=== PATIENT | male | born 1970 | race Caucasian/White ===

== ENCOUNTER 2023-01-21 00:10 | Day surgery (SDC) | payer OTHER, SELFPAY ==
[2023-01-08 11:51] VITALS: BMI 44.9
[2023-01-21 10:18] VITALS: BP 161/71; PULSE 57; RESP 18; TEMP 36.2; O2SAT 98
[2023-01-21] MEDS: LACTATED RINGERS 1,000 ML 150 ML IV CONT (10:28)
--- NOTE | 2023-01-21 10:29 | P.PNAN_ITS ---
Anes - Initial Pre Proc Eval Procedure: Operation Date: 01/21/23 11:30 Proposed Procedures p Screening Colonoscopy - Reji Olson MD Date/Time: 01/21/23 10:29 Surgeon: Reji Olson MD Pre Op Diagnosis: neoplasm screening Patient Data Age: 52 Gender: M Height: 1.78 m Weight: 145.5 kg Last Vital Signs Temp 36.2 C L 01/21/23 10:18 Pulse 57 L 01/21/23 10:18 Resp 18 01/21/23 10:18 BP 161/71 H 01/21/23 10:18 Pulse Ox 98 01/21/23 10:18 O2 Del Method Room Air 01/21/23 10:18 Allergies Allergy/AdvReac Type Severity Reaction Status Date / Time No Known Allergies Allergy Verified 01/21/23 10:17 Home Medications Medication Instructions Recorded Confirmed Type allopurinol 100 mg tablet 100 mg PO DAILY 01/08/23 01/08/23 History canagliflozin 300 mg tablet 300 mg PO DAILY 01/08/23 01/08/23 History (Invokana) glipizide 10 mg tablet 10 mg PO BID 01/08/23 01/08/23 History losartan 50 mg tablet 50 mg PO DAILY 01/08/23 01/08/23 History metformin 1,000 mg tablet 1,000 mg PO DAILY 01/08/23 01/08/23 History pioglitazone 30 mg tablet 30 mg PO DAILY 01/08/23 01/08/23 History pravastatin 20 mg tablet 20 mg PO DAILY 01/08/23 01/08/23 History tadalafil 2.5 mg tablet 2.5 mg PO DAILY PRN Erectile 01/08/23 01/08/23 History Dysfunction Patient hx anesthesia problems: none Family hx anesthesia problems: none Results Review: All pre-operative results and documents have been reviewed as part of the pre- operative evaluation. [facility] Past Medical History Medical History (Updated 01/21/23 @ 10:30 by Freddy Isaac MD) COPD (chronic obstructive pulmonary disease) Diabetes Hyperlipidemia MARCELLUS on CPAP Social History Social History Living arrangements: with family Spiritual care concerns: No Anes - Eval Final PreProcedure Day of Procedure 01/21/23 10:29 Patient weight: morbidly obese Heart: regular rate and rhythm Lungs: clear to auscultation and normal air movement Airway: Mallampati scale class II Neurological: alert and oriented Last oral intake: >/= 8 hours ASA classification: III Emergent: no Anesthetic plan: proceed Anesthesia type and monitoring: general GIVS Results Review: All pre-operative results and documents have been reviewed as part of the pre- operative evaluation. Informed Consent: The patient's anesthetic plan and its attendant risks and benefits were discussed with the patient/family/POA. Questions were solicited and answers provided to the satisfaction of the patient/family/POA.
--- NOTE | 2023-01-21 10:47 | PM.HPGS ---
History of Present Illness History of Present Illness Consent: Risks, benefits, and alternatives have been discussed and questions answered. Patient agrees to proceed with procedure. Chief complaint: neoplasm screening Narrative: Constantine Carranza is a 52 year old male here for first screening colonoscopy Review of Systems Constitutional: Constitutional: Denies headache(s) and Denies weakness Eyes: Eyes: Denies blurry vision ENT: Reports Normal hearing present, Denies headache(s) and Denies neck pain Cardiovascular: Cardiovascular: Denies chest pain and Denies dyspnea Respiratory: Respiratory: Denies dyspnea Gastrointestinal: Gastrointestinal: Reports no additional gastrointestinal complaints Genitourinary: Genitourinary: Denies dysuria Musculoskeletal: Musculoskeletal: Denies neck pain Integumentary/Breasts: Skin/Breast: Denies dry skin Neurologic: Reports Normal hearing present, Denies headache(s) and Denies weakness Psychiatric: Psychiatric: Denies anxiety Endocrine: Endocrine: Denies change in body appearance Hematologic/Lymphatic: Hematologic/Lymphatic: Denies easy bleeding Allergic/Immunologic: Allergic/Immunologic: Denies urticaria [facility] Past Medical History Medical History (Updated 01/21/23 @ 10:47 by Reji Olson MD) Colon cancer screening COPD (chronic obstructive pulmonary disease) Diabetes Hyperlipidemia MARCELLUS on CPAP Social History Social History Living arrangements: with family Spiritual care concerns: No Meds Home Medications and Allergies Home Medications Medication Instructions Recorded Confirmed Type allopurinol 100 mg tablet 100 mg PO DAILY 01/08/23 01/08/23 History canagliflozin 300 mg tablet 300 mg PO DAILY 01/08/23 01/08/23 History (Invokana) glipizide 10 mg tablet 10 mg PO BID 01/08/23 01/08/23 History losartan 50 mg tablet 50 mg PO DAILY 01/08/23 01/08/23 History metformin 1,000 mg tablet 1,000 mg PO DAILY 01/08/23 01/08/23 History pioglitazone 30 mg tablet 30 mg PO DAILY 01/08/23 01/08/23 History pravastatin 20 mg tablet 20 mg PO DAILY 01/08/23 01/08/23 History tadalafil 2.5 mg tablet 2.5 mg PO DAILY PRN Erectile 01/08/23 01/08/23 History Dysfunction Allergies Allergy/AdvReac Type Severity Reaction Status Date / Time No Known Allergies Allergy Verified 01/21/23 10:17 Vital Signs Vital Signs - 24 hr 01/21/23 10:18 Temperature 97.2 F L Pulse Rate 57 L Respiratory Rate 18 Blood Pressure 161/71 H Pulse Oximetry 98 Oxygen Delivery Room Air Exam Const: General: comfortable and no acute distress HENMT: Face/Nose/Sinus: Normal nares present Eyes: General: appearance normal, both eyes and all related structures Neck: Neck: no JVD Resp: Auscultation: clear to auscultation bilaterally Cardio: Rate: regular rate Rhythm: regular rhythm GI: Inspection: non-distended GI Palp: Yes Soft to palpation Skin: General skin exam: normal color Neuro: General: gait normal Speech: normal speech Extrem: General: normal to inspection Psych: Mental Status: mental status grossly normal Assessment and Plan Assessment and plan (1) Colon cancer screening: Code(s): Z12.11 - Encounter for screening for malignant neoplasm of colon Status: Acute Assessment and Plan: colonoscopy
[2023-01-21 10:49] LABS: Glucose Point of Care 132 mg/dl (65-105)
[2023-01-21 11:09] VITALS: BP 111/54; PULSE 59; RESP 18; O2SAT 98
[2023-01-21 11:19] VITALS: BP 120/56; PULSE 61; RESP 20; O2SAT 98
[2023-01-21 11:29] VITALS: BP 110/59; PULSE 56; RESP 21; O2SAT 98
== END 2023-01-21 11:37 | disposition home or self-care (01) ==
PROVIDERS: Visit Provider Internal Medicine Gastroenterology
PROC: 0DJD8ZZ Inspection of Lower Intestinal Tract, Via Natural or Artificial Opening Endoscopic (ICD-10-PCS; CPT 45378; principal; 2023-01-21 11:30)
DX: Z12.11 Encounter for screening for malignant neoplasm of colon (principal); K63.5 Polyp of colon; E78.5 Hyperlipidemia, unspecified; E11.9 Type 2 diabetes mellitus without complications; J44.9 Chronic obstructive pulmonary disease, unspecified; G47.33 Obstructive sleep apnea (adult) (pediatric); Z79.84 Long term (current) use of oral hypoglycemic drugs; E66.01 Morbid (severe) obesity due to excess calories; Z68.42 Body mass index [BMI] 45.0-49.9, adult
CPT/HCPCS: 45385; 82948; 88305; J2704; J7120